=== PATIENT | male | born 2000 ===

== ENCOUNTER 2022-07-14 17:30 | Inpatient (IN) | payer SELFPAY ==
--- NOTE | 2022-07-15 00:22 | Emergency Department Report ---
ED Upper Extremity Inj HPI - General Chief Complaint: Fall Stated Complaint: ARM PAIN Time Seen by Provider: 07/14/22 23:09 Source: patient Mode of arrival: Ambulatory Limitations: No Limitations - History of Present Illness Initial Comments: 22-year-old male who presented with left shoulder pain that started after a fall shortly before presentation. Patient rated the pain as 7-8 over 10 in severity. He has not been able to move the shoulder in any direction due to excruciating pain. No other modifying or associated factors reported. MD Complaint: Injury to:: left, shoulder - Related Data Previous Rx's Medication Instructions Recorded Last Taken Type oxyCODONE /ACETAMINOPHEN [Percocet 1 tab PO Q6HR PRN #20 tablet 07/16/22 Unknown Rx 5/325] Allergies Allergy/AdvReac Type Severity Reaction Status Date / Time No Known Allergies Allergy Verified 07/15/22 00:26 ED Review of Systems ROS: Stated complaint: ARM PAIN Other details as noted in HPI Comment: All other systems reviewed and negative Musculoskeletal: arthralgia, other (left shoulder pain and injury ) ED Past Medical Hx - Medications Home Medications: Home Medications Medication Instructions Recorded Confirmed Last Taken Type oxyCODONE /ACETAMINOPHEN [Percocet 1 tab PO Q6HR PRN #20 tablet 07/16/22 Unknown Rx 5/325] ED Physical Exam - General Limitations: No Limitations General appearance: alert, in no apparent distress - Head Head exam: Present: normal inspection - ENT ENT exam: Present: normal exam, normal orophraynx, mucous membranes moist - Neck Neck exam: Present: normal inspection, full ROM. Absent: tenderness - Respiratory Respiratory exam: Present: normal lung sounds bilaterally. Absent: respiratory distress, accessory muscle use - Cardiovascular Cardiovascular Exam: Present: regular rate, normal rhythm, normal heart sounds - GI/Abdominal GI/Abdominal exam: Present: soft, normal bowel sounds. Absent: distended, tenderness - Extremities Exam Extremities exam: Present: tenderness (left shoulder with obvious deformity but no swellings ), normal capillary refill. Absent: pedal edema - Back Exam Back exam: Absent: tenderness - Neurological Exam Neurological exam: Present: alert, oriented X3 - Psychiatric Psychiatric exam: Present: normal affect, normal mood - Skin Skin exam: Present: warm, normal color ED Course Vital Signs 07/14/22 07/15/22 07/15/22 17:36 00:40 01:40 Temperature 99.1 F Pulse Rate 105 H Respiratory 18 18 Rate Blood Pressure 155/97 [Left] O2 Sat by Pulse 100 100 Oximetry 07/15/22 02:10 Temperature Pulse Rate 100 H Respiratory 20 Rate Blood Pressure [Left] O2 Sat by Pulse Oximetry - Orthopedic Joint Reduction Joint #1 Consent Obtained: written consent Time Out Performed: Yes Side: left Joint Reduction Location: shoulder Analgesia: moderate sedation Shoulder Technique Used (if applicable): traction/counter-traction Technique Used: traction/counter-traction, direct manipulation Post-Reduction Neuro Exam: intact, no change Post-Reduction Vascular Exam: intact Post Reduction X-Ray Obtained: Yes (failed reduction) Post Reduction X-Ray Results: not reduced Splint Applied: No Patient Tolerated Procedure: well Additional Comments: after failed 3rd attempt i call Dr Hayes the Orthopedic oncall who suggested ad mitting the patient to the hospitalist and he plan to take him to the OR. ED Medical Decision Making - Lab Data Result diagrams: 07/16/22 05:06 07/16/22 05:06 - Medical Decision Making here with left shoulder pain after a fall with noted tenderness and obvious deformity -- this is dislocation with or without fracture -- will go ahead and give pain medication and get xray for further evaluation and treatment-- Xray noted with no fracture but dislocation--with failed 3 rd attempt-- Dr Hayse consulted who plan to take patient to the OR. Critical care attestation.: If time is entered above; I have spent that time in minutes in the direct care of this critically ill patient, excluding procedure time. ED Disposition Clinical Impression: Dislocation of left shoulder joint Qualifiers: Encounter type: initial encounter Qualified Code(s): S43.005A - Unspecified dislocation of left shoulder joint, initial encounter Fall Qualifiers: Encounter type: initial encounter Qualified Code(s): W19.XXXA - Unspecified fall, initial encounter Disposition: ADMITTED INPATIENT Is pt being admited?: No Does the pt Need Aspirin: No Condition: Stable
[2022-07-15] MEDS ORDERED: fentaNYL 100 MCG/2 ML INJ IV ONE ×2 (00:23→04:15)
[2022-07-15] MEDS ORDERED: HYDROcodone/ACETAMINOPHEN 5-325 MG TAB PO ONE (00:36)
[2022-07-15] MEDS ORDERED: MIDAZOLAM 2 MG/2 ML INJ ONE ×2 (00:36→01:20)
[2022-07-15] MEDS ORDERED: SODIUM CHLORIDE 0.9% 1000 ML 1,000 ML ONE (00:37)
--- NOTE | 2022-07-15 00:46 | XRay Report ---
LEFT SHOULDER 3 VIEWS 2339 INDICATION: shoulder pain - fall COMPARISON: None available. FINDINGS: Humeral head is dislocated inferiorly and anteriorly in relation to the glenoid. No obvious fracture is identified. Signer Name: Neil Gonzalez MD Signed: 07/15/2022 12:42 AM Workstation Name: [id number]
[2022-07-15] MEDS ORDERED: MIDAZOLAM 5 MG/5 ML INJ MDV IV NR (01:00)
[2022-07-15] MEDS ORDERED: propofoL 200 MG/20 ML VIAL IV ONE ×4 (01:03→12:52)
[2022-07-15] MEDS ORDERED: KETAMINE 500 MG/5 ML VIAL MDV ONE (02:08)
[2022-07-15] MEDS ORDERED: MORPHINE 2 MG/1 ML INJ IV PRN ×2 (02:33→04:32)
[2022-07-15] MEDS ORDERED: ACETAMINOPHEN 325 MG TAB PO PRN ×2 (02:33→04:32)
[2022-07-15] MEDS ORDERED: ONDANSETRON 4 MG/2 ML INJ IV PRN ×2 (02:33→04:32)
[2022-07-15 02:51] LABS: Basophils % (Auto) 0.3 % (0.0-1.8); Eosinophils # (Auto) 0.2 K/mm3 (0.0-0.4); Eosinophils % (Auto) 1.6 % (0.0-4.3); Hematocrit 47.3 % (35.5-45.6); Hemoglobin 16.3 gm/dl (11.8-15.2); Lymphocytes # (Auto) 1.8 K/mm3 (1.2-5.4); Mean Corpuscular HGB Conc 35 % (32-34); Mean Corpuscular Volume 87 fl (84-94); Monocytes # (Auto) 0.9 K/mm3 (0.0-0.8); Monocytes % (Auto) 7.1 % (0.0-7.3); Platelet Count 180 K/mm3 (140-440); Red Blood Count 5.47 M/mm3 (3.65-5.03); Red Cell Distribution Width 13.5 % (13.2-15.2)
--- NOTE | 2022-07-15 02:55 | XRay Report ---
LEFT SHOULDER 1 VIEW 0202 INDICATION: POST REDUCTION LEFT SHOULDER COMPARISON: 07/14/2022 2339 FINDINGS: Single AP view shows continued anteroinferior dislocation of the humeral head and Signer Name: Neil Gonzalez MD Signed: 07/15/2022 2:51 AM Workstation Name: [id number]
[2022-07-15 03:02] LABS: INR 0.83 (0.87-1.13); Partial Thromboplastin Time 29.2 Sec. (24.2-36.6)
[2022-07-15 03:22] LABS: Alanine Aminotransferase 40 units/L (7-56); Albumin 4.8 g/dL (3.9-5); BUN/Creatinine Ratio 9; Blood Urea Nitrogen 8 mg/dL (9-20); Calcium 9.4 mg/dL (8.4-10.2); Hemolysis Index 67
[2022-07-15] MEDS ORDERED: MIDAZOLAM 2 MG/2 ML INJ IV ONE (04:16)
[2022-07-15] MEDS ORDERED: MORPHINE 4 MG/1 ML INJ IV PRN (04:32)
[2022-07-15] MEDS ORDERED: ALBUTEROL 2.5 MG/3 ML NEBU IH PRN (04:32)
--- NOTE | 2022-07-15 04:38 | History and Physical Report ---
History of Present Illness Date of examination: 07/15/22 Date of admission: 07/15/22 02:33 Chief complaint: Fall Left arm pain History of present illness: 22-year-old male who presented with left shoulder pain that started after a fall shortly before presentation. Patient rated the pain as 7-8 over 10 in severity. He has not been able to move the shoulder in any direction due to excruciating pain. No other modifying or associated factors reported. In the emergency room X -ray noted with no fracture but dislocation--with failed 3 rd attempt-- Dr Hayes consulted who plan to take patient to the OR. Medications and Allergies Allergies Allergy/AdvReac Type Severity Reaction Status Date / Time No Known Allergies Allergy Verified 07/15/22 00:26 Active Meds: Active Medications Acetaminophen (Acetaminophen 325 Mg Tab) 650 mg PO Q4H PRN PRN Reason: Pain MILD(1-3)/Fever >100.5/YEH Morphine Sulfate (Morphine 2 Mg/1 Ml Inj) 2 mg IV Q4H PRN PRN Reason: Pain, Moderate (4-6) Ondansetron HCl (Ondansetron 4 Mg/2 Ml Inj) 4 mg IV Q8H PRN PRN Reason: Nausea And Vomiting Sodium Chloride (Sodium Chloride 0.9% 10 Ml Flush Syringe) 10 ml IV BID JONATHAN Sodium Chloride (Sodium Chloride 0.9% 10 Ml Flush Syringe) 10 ml IV PRN PRN PRN Reason: LINE FLUSH Review of Systems All systems: negative Constitutional: other (Left arm pain) Exam - Constitutional Vitals: Temp Pulse Resp BP Pulse Ox 99.1 F 100 H 20 155/97 100 07/14/22 17:36 07/15/22 02:10 07/15/22 02:10 07/14/22 17:36 07/15/22 01:40 General appearance: Present: no acute distress, well-nourished - EENT Eyes: Present: PERRL ENT: hearing intact, clear oral mucosa - Neck Neck: Present: supple, normal ROM - Respiratory Respiratory effort: normal Respiratory: bilateral: CTA - Cardiovascular Heart Sounds: Present: S1 & S2. Absent: rub, click - Extremities Extremities: pulses symmetrical, No edema Peripheral Pulses: within normal limits - Abdominal General gastrointestinal: Present: soft, non-tender, non-distended, normal bowel sounds Male genitourinary: Present: normal - Integumentary Integumentary: Present: clear, warm, dry - Musculoskeletal Musculoskeletal: gait normal, strength equal bilaterally - Psychiatric Psychiatric: appropriate mood/affect, intact judgment & insight - Neurologic Neurologic: CNII-XII intact, moves all extremities Results - Labs CBC & Chem 7: 07/15/22 02:36 07/15/22 02:36 Labs: Laboratory Last Values WBC 12.1 K/mm3 (4.5-11.0) H 07/15/22 02:36 RBC 5.47 M/mm3 (3.65-5.03) H 07/15/22 02:36 Hgb 16.3 gm/dl (11.8-15.2) H 07/15/22 02:36 Hct 47.3 % (35.5-45.6) H 07/15/22 02:36 MCV 87 fl (84-94) 07/15/22 02:36 MCH 30 pg (28-32) 07/15/22 02:36 MCHC 35 % (32-34) H 07/15/22 02:36 RDW 13.5 % (13.2-15.2) 07/15/22 02:36 Plt Count 180 K/mm3 (140-440) 07/15/22 02:36 Lymph % (Auto) 15.0 % (13.4-35.0) 07/15/22 02:36 [place] % (Auto) 7.1 % (0.0-7.3) 07/15/22 02:36 Eos % (Auto) 1.6 % (0.0-4.3) 07/15/22 02:36 Baso % (Auto) 0.3 % (0.0-1.8) 07/15/22 02:36 Lymph # (Auto) 1.8 K/mm3 (1.2-5.4) 07/15/22 02:36 [place] # (Auto) 0.9 K/mm3 (0.0-0.8) H 07/15/22 02:36 Eos # (Auto) 0.2 K/mm3 (0.0-0.4) 07/15/22 02:36 Baso # (Auto) 0.0 K/mm3 (0.0-0.1) 07/15/22 02:36 Seg Neutrophils % 76.0 % (40.0-70.0) H 07/15/22 02:36 Seg Neutrophils # 9.2 K/mm3 (1.8-7.7) H 07/15/22 02:36 PT 12.3 Sec. (12.2-14.9) 07/15/22 02:36 INR 0.83 (0.87-1.13) L 07/15/22 02:36 APTT 29.2 Sec. (24.2-36.6) 07/15/22 02:36 Sodium 138 mmol/L (137-145) 07/15/22 02:36 Potassium 4.7 mmol/L (3.6-5.0) 07/15/22 02:36 Chloride 101.0 mmol/L (98-107) 07/15/22 02:36 Carbon Dioxide 27 mmol/L (22-30) 07/15/22 02:36 Anion Gap 15 mmol/L 07/15/22 02:36 BUN 8 mg/dL (9-20) L 07/15/22 02:36 Creatinine 0.9 mg/dL (0.8-1.3) 07/15/22 02:36 Estimated GFR > 60 ml/min 07/15/22 02:36 BUN/Creatinine Ratio 9 % 07/15/22 02:36 Glucose 118 mg/dL (75-100) H 07/15/22 02:36 Calcium 9.4 mg/dL (8.4-10.2) 07/15/22 02:36 Total Bilirubin 0.70 mg/dL (0.1-1.2) 07/15/22 02:36 AST 37 units/L (5-40) 07/15/22 02:36 ALT 40 units/L (7-56) 07/15/22 02:36 Alkaline Phosphatase 136 units/L (35-129) H 07/15/22 02:36 Total Protein 7.6 g/dL (6.3-8.2) 07/15/22 02:36 Albumin 4.8 g/dL (3.9-5) 07/15/22 02:36 Albumin/Globulin Ratio 1.7 % 07/15/22 02:36 - Imaging and Cardiology Chest x-ray: report reviewed [place]/IV: Voiding Method Urinal Assessment and Plan VTE prophylaxis?: Mechanical Plan of care discussed with patient/family: Yes - Patient Problems (1) Dislocation of left shoulder joint Current Visit: Yes Status: Acute Qualifiers: Encounter type: initial encounter Qualified Code(s): S43.005A - Unspecified dislocation of left shoulder joint, initial encounter Plan to address problem: Admit the patient to the [facility]. NPO. D5 half-normal saline at the rate of 100 cc/h. We consulted orthopedic Dr. Hayes who will take the patient to the OR for reduction. Continue current management (2) Fall Current Visit: Yes Status: Acute Qualifiers: Encounter type: initial encounter Qualified Code(s): W19.XXXA - Unspecified fall, initial encounter Plan to address problem: Patient is on fall precaution. We will monitor the patient closely. Will consult with Dr. Hayes for left shoulder reduction (3) DVT prophylaxis Current Visit: Yes Status: Acute Plan to address problem: SCD for DVT prophylaxis. Pepcid 20 mg IV every 12 hours for GI prophylaxis. Patient is a full code
[2022-07-15] MEDS ORDERED: D5W/0.45% NACL 1,000 ML IV SCH (05:00)
[2022-07-15] MEDS: FAMOTIDINE 20 MG/2 ML INJ IV SCH ×2 (09:05→22:33)
[2022-07-15] MEDS: IPRATROPIUM/ALBUTEROL SULFATE 3 ML AMPUL.NEB IH SCH ×3 (09:33→21:00)
--- NOTE | 2022-07-15 11:02 | Anesthesia Day of Surgery ---
Anesthesia Day of Surgery - Day of Surgery Patient Examined: Yes Patient H&P Reviewed: Yes Patient is NPO: Yes
--- NOTE | 2022-07-15 11:02 | Anesthesia Consultation ---
Anesthesia Consult and Med Hx Date of service: 07/15/22 - Airway Anesthetic Teeth Evaluation: Good ROM Head & Neck: Adequate Mental/Hyoid Distance: Adequate Mallampati Class: Class I Intubation Access Assessment: Good - Pulmonary Exam CTA: Yes - Cardiac Exam Cardiac Exam: RRR - Pre-Operative Health Status ASA Pre-Surgery Classification: ASA2 Proposed Anesthetic Plan: General - Pulmonary Hx Smoking: Yes (1 ppd) Hx Asthma: No Hx Respiratory Symptoms: No - Cardiovascular System Hx Hypertension: No Hx Coronary Artery Disease: No - Central Nervous System Hx Seizures: No CVA: No - Gastrointestinal Hx Gastroesophageal Reflux Disease: No - Endocrine Hx Renal Disease: No Hx Liver Disease: No Hx Insulin Dependent Diabetes: No Hx Thyroid Disease: No - Hematic Hx Anemia: No Hx Sickle Cell Disease: No - Other Systems Hx Alcohol Use: No Hx Substance Use: No Hx Cancer: No Hx Obesity: No - Additional Comments Anesthesia Medical History Comments: no hx of anesthetic complications
[2022-07-15] MEDS ORDERED: LIDOCAINE MPF (2%) 20 MG/1 ML VIAL 5 ML ONE (12:52)
--- NOTE | 2022-07-15 13:45 | Consultation ---
History of Present Illness - [facility] Consult date: 07/15/22 Consult reason: joint pain History of present illness: 22 y/o male with c/o left shoulder pain after fall earlier today, seen in the ED where patient noted to enebriated with smell of alcohol, multiple attempts un successful therefore admitted for closed reduction in the OR. no other c/o's noted, denies motor/sensory loss distally.... Medications and Allergies Allergies Allergy/AdvReac Type Severity Reaction Status Date / Time No Known Allergies Allergy Verified 07/15/22 00:26 Active Meds: Active Medications Acetaminophen (Acetaminophen 325 Mg Tab) 650 mg PO Q4H PRN PRN Reason: Pain MILD(1-3)/Fever >100.5/YEH Albuterol (Albuterol 2.5 Mg/3 Ml Nebu) 2.5 mg IH Q4HRT PRN PRN Reason: Shortness Of Breath Albuterol/Ipratropium (Ipratropium/Albuterol Sulfate 3 Ml Ampul.Neb) 1 ampul IH Q6HRT [facility] Last Admin: 07/15/22 09:33 Dose: Not Given Famotidine (Famotidine 20 Mg/2 Ml Inj) 20 mg IV BID [facility] Last Admin: 07/15/22 09:05 Dose: 20 mg Dextrose/Sodium Chloride (D5/0.45ns) 1,000 mls @ 100 mls/hr IV DIRECT [facility] Morphine Sulfate (Morphine 2 Mg/1 Ml Inj) 2 mg IV Q4H PRN PRN Reason: Pain, Moderate (4-6) Morphine Sulfate (Morphine 4 Mg/1 Ml Inj) 4 mg IV Q4H PRN PRN Reason: Pain , Severe (7-10) Ondansetron HCl (Ondansetron 4 Mg/2 Ml Inj) 4 mg IV Q8H PRN PRN Reason: Nausea And Vomiting Sodium Chloride (Sodium Chloride 0.9% 10 Ml Flush Syringe) 10 ml IV BID [facility] Last Admin: 07/15/22 09:05 Dose: 10 ml Sodium Chloride (Sodium Chloride 0.9% 10 Ml Flush Syringe) 10 ml IV PRN PRN PRN Reason: LINE FLUSH Physical Examination - Physical exam Narrative exam: left shoulder - tender at GH joint, dec AROM, + sulcus sign Eyes: PERRL ENT: Positive: clear oral mucosa Respiratory effort: normal Respiratory: bilateral: CTA Rhythm: regular Heart Sounds: Positive: S1 & S2 General gastrointestinal: Positive: soft, non-tender, non-distended, normal bowel sounds Integumentary: clear, warm, dry Neurologic: Positive: CNII-XII intact, moves all extremities, gait normal. Negative: focal deficits Assessment and Plan Anterior shoulder dislocation will take to OR for CR left shoulder...
--- NOTE | 2022-07-15 13:48 | Procedure Note ---
Date of procedure: 07/15/22 Pre-op diagnosis: Left shoulder dislocation Post-op diagnosis: same Procedure: Closed reduction left shoulder dislocation Procedure Patient was brought to the OR placed on the OR table in supine position following induction with MAC anesthesia 2 sheaths were placed 1 underneath the left axilla this was then given to scrub nurse the second sheet was applied to the patient's forearm and tied around my midsection with gentle traction the shoulder was noted to reduce spontaneously with a palpable clunk noted postreduction x-rays via C arm were obtained showing good anatomic reduction with no obvious fracture seen patient was placed in a arm sling and was taken to postanesthesia recovery in stable condition Anesthesia: MAC Surgeon: BLACK KRISHNAMURTHY Estimated blood loss: none Pathology: none Condition: stable Disposition: PACU
--- NOTE | 2022-07-15 15:06 | XRay Report ---
XR shoulder 1V LT Technique: Intraoperative fluoroscopic guidance was provided. Fluoroscopy time: 2 seconds. Fluoroscopy images: 1. Findings/Impression: Intraoperative fluoroscopic guidance for left glenohumeral joint reduction. Roro samuel see procedure report for further details. Signer Name: Luis Iglesias MD Signed: 07/15/2022 3:02 PM Workstation Name: [email or web address]
--- NOTE | 2022-07-15 16:12 | Post Anesthesia Evaluation ---
- Post Anesthesia Evaluation Patient Participated: Yes Airway Patent: Yes Stable Respiratory Function: Yes Nausea/Vomiting: No Temp > 96.8F: Yes Pain Manageable: Yes Adequeate Hydration: Yes Anesthesia Complications: No Block Receding Appropriately: Not Applicable Patient on Ventilator: No
--- NOTE | 2022-07-15 20:16 | Progress Note ---
Assessment and Plan Assessment and plan: --Dislocation of left shoulder joint Orthopedic Dr. Hayes evaluated the patient, patient n.p.o. status Left shoulder joint dislocation: s/p Closed reduction left shoulder dislocation 07/15/2022 Postop care, IV fluids, pain medications. PT OT and supportive care ---h/o Fall Fall precaution. Supportive care --DVT prophylaxis SCD for DVT prophylaxis. Pepcid 20 mg IV every 12 hours for GI prophylaxis. Closely monitor the patient and adjust management as needed Plan of care reviewed with the patient and his nurse Orthopedic evaluation, therapeutic intervention and management reviewed And appreciated Continue supportive care History Interval history: I have seen and examined the patient at the bedside Patient's chart and medications reviewed Patient underwent Closed reduction left shoulder dislocation today [07/15/2022] Patient tolerated the procedure well, returned to the room Complains of some pain in the shoulder Hospitalist Physical - Constitutional Vitals: Temp Pulse Resp BP Pulse Ox 99.5 F 100 H 18 132/88 98 07/15/22 14:30 07/15/22 14:30 07/15/22 15:07 07/15/22 15:07 07/15/22 14:30 General appearance: Present: mild distress, well-nourished, other (Due to some pain) - EENT Eyes: Present: PERRL, EOM intact ENT: hearing intact, clear oral mucosa - Neck Neck: Present: supple, normal ROM - Respiratory Respiratory effort: normal Respiratory: bilateral: diminished, negative: rales, rhonchi, wheezing - Cardiovascular Rhythm: regular Heart Sounds: Present: S1 & S2 - Extremities Extremities: abnormal (Mild shoulder pain) - Abdominal General gastrointestinal: soft, non-tender, non-distended, normal bowel sounds - Integumentary Integumentary: Present: clear, warm - Psychiatric Psychiatric: appropriate mood/affect, cooperative - Neurologic Neurologic: CNII-XII intact, moves all extremities Results - Labs CBC & Chem 7: 07/15/22 02:36 07/15/22 02:36 Labs: Laboratory Last Values WBC 12.1 K/mm3 (4.5-11.0) H 07/15/22 02:36 RBC 5.47 M/mm3 (3.65-5.03) H 07/15/22 02:36 Hgb 16.3 gm/dl (11.8-15.2) H 07/15/22 02:36 Hct 47.3 % (35.5-45.6) H 07/15/22 02:36 MCV 87 fl (84-94) 07/15/22 02:36 MCH 30 pg (28-32) 07/15/22 02:36 MCHC 35 % (32-34) H 07/15/22 02:36 RDW 13.5 % (13.2-15.2) 07/15/22 02:36 Plt Count 180 K/mm3 (140-440) 07/15/22 02:36 Lymph % (Auto) 15.0 % (13.4-35.0) 07/15/22 02:36 [place] % (Auto) 7.1 % (0.0-7.3) 07/15/22 02:36 Eos % (Auto) 1.6 % (0.0-4.3) 07/15/22 02:36 Baso % (Auto) 0.3 % (0.0-1.8) 07/15/22 02:36 Lymph # (Auto) 1.8 K/mm3 (1.2-5.4) 07/15/22 02:36 [place] # (Auto) 0.9 K/mm3 (0.0-0.8) H 07/15/22 02:36 Eos # (Auto) 0.2 K/mm3 (0.0-0.4) 07/15/22 02:36 Baso # (Auto) 0.0 K/mm3 (0.0-0.1) 07/15/22 02:36 Seg Neutrophils % 76.0 % (40.0-70.0) H 07/15/22 02:36 Seg Neutrophils # 9.2 K/mm3 (1.8-7.7) H 07/15/22 02:36 PT 12.3 Sec. (12.2-14.9) 07/15/22 02:36 INR 0.83 (0.87-1.13) L 07/15/22 02:36 APTT 29.2 Sec. (24.2-36.6) 07/15/22 02:36 Sodium 138 mmol/L (137-145) 07/15/22 02:36 Potassium 4.7 mmol/L (3.6-5.0) 07/15/22 02:36 Chloride 101.0 mmol/L (98-107) 07/15/22 02:36 Carbon Dioxide 27 mmol/L (22-30) 07/15/22 02:36 Anion Gap 15 mmol/L 07/15/22 02:36 BUN 8 mg/dL (9-20) L 07/15/22 02:36 Creatinine 0.9 mg/dL (0.8-1.3) 07/15/22 02:36 Estimated GFR > 60 ml/min 07/15/22 02:36 BUN/Creatinine Ratio 9 % 07/15/22 02:36 Glucose 118 mg/dL (75-100) H 07/15/22 02:36 Calcium 9.4 mg/dL (8.4-10.2) 07/15/22 02:36 Total Bilirubin 0.70 mg/dL (0.1-1.2) 07/15/22 02:36 AST 37 units/L (5-40) 07/15/22 02:36 ALT 40 units/L (7-56) 07/15/22 02:36 Alkaline Phosphatase 136 units/L (35-129) H 07/15/22 02:36 Total Protein 7.6 g/dL (6.3-8.2) 07/15/22 02:36 Albumin 4.8 g/dL (3.9-5) 07/15/22 02:36 Albumin/Globulin Ratio 1.7 % 07/15/22 02:36 [place]/IV: Voiding Method Urinal Active Medications - Current Medications Current Medications: Generic Name Dose Route Start Last Admin Trade Name Freq PRN Reason Stop Dose Admin Acetaminophen 650 mg 07/15/22 02:33 Acetaminophen 325 Mg Tab PO Q4H PRN Pain MILD(1-3)/Fever >100.5/YEH Albuterol 2.5 mg 07/15/22 04:32 Albuterol 2.5 Mg/3 Ml Nebu IH Q4HRT PRN Shortness Of Breath Albuterol/Ipratropium 1 ampul 07/15/22 08:00 07/15/22 13:43 Ipratropium/Albuterol Sulfate 3 Ml Ampul.Neb IH Not Given Q6HRT JONATHAN Famotidine 20 mg 07/15/22 10:00 07/15/22 09:05 Famotidine 20 Mg/2 Ml Inj IV 20 mg BID JONATHAN Administration Dextrose/Sodium Chloride 1,000 mls @ 100 mls/hr 07/15/22 05:00 D5/0.45ns IV DIRECT JONATHAN Morphine Sulfate 2 mg 07/15/22 02:33 Morphine 2 Mg/1 Ml Inj IV Q4H PRN Pain, Moderate (4-6) Morphine Sulfate 4 mg 07/15/22 04:32 Morphine 4 Mg/1 Ml Inj IV Q4H PRN Pain , Severe (7-10) Ondansetron HCl 4 mg 07/15/22 02:33 Ondansetron 4 Mg/2 Ml Inj IV Q8H PRN Nausea And Vomiting Sodium Chloride 10 ml 07/15/22 03:00 07/15/22 15:11 Sodium Chloride 0.9% 10 Ml Flush Syringe IV 10 ml BID JONATHAN Administration Sodium Chloride 10 ml 07/15/22 02:33 Sodium Chloride 0.9% 10 Ml Flush Syringe IV PRN PRN LINE FLUSH
[2022-07-16 05:25] LABS: Basophils % (Auto) 0.2 % (0.0-1.8); Eosinophils # (Auto) 0.2 K/mm3 (0.0-0.4); Eosinophils % (Auto) 2.5 % (0.0-4.3); Hemoglobin 16.4 gm/dl (11.8-15.2); Lymphocytes # (Auto) 2.3 K/mm3 (1.2-5.4); Lymphocytes % (Auto) 24.9 % (13.4-35.0); Mean Corpuscular HGB Conc 34 % (32-34); Mean Corpuscular Volume 87 fl (84-94); Monocytes # (Auto) 0.7 K/mm3 (0.0-0.8); Monocytes % (Auto) 7.8 % (0.0-7.3); Platelet Count 150 K/mm3 (140-440); Red Blood Count 5.51 M/mm3 (3.65-5.03); Red Cell Distribution Width 13.4 % (13.2-15.2)
[2022-07-16 05:37] LABS: BUN/Creatinine Ratio 11; Blood Urea Nitrogen 9 mg/dL (9-20); Calcium 9.6 mg/dL (8.4-10.2); Hemolysis Index 19
--- NOTE | 2022-07-16 09:41 | Progress Note ---
Assessment and Plan Assessment and plan: --Dislocation of left shoulder joint Orthopedic Dr. Hayes evaluated the patient, patient n.p.o. status Left shoulder joint dislocation: s/p Closed reduction left shoulder dislocation 07/15/2022 Postop care, IV fluids, pain medications. PT OT and supportive care ---h/o Fall Fall precaution. Supportive care --DVT prophylaxis SCD for DVT prophylaxis. Pepcid 20 mg IV every 12 hours for GI prophylaxis. Closely monitor the patient and adjust management as needed Plan of care reviewed with the patient and his nurse Orthopedic evaluation, therapeutic intervention and management reviewed And appreciated Continue supportive care Hospitalist Physical - Constitutional Vitals: Temp Pulse Resp BP Pulse Ox 97.8 F 103 H 17 137/92 97 07/16/22 07:21 07/16/22 07:21 07/16/22 07:21 07/16/22 07:21 07/16/22 07:21 General appearance: Present: mild distress, well-nourished, other (Due to some pain) Results - Labs CBC & Chem 7: 07/16/22 05:06 07/16/22 05:06 Labs: Laboratory Last Values WBC 9.1 K/mm3 (4.5-11.0) 07/16/22 05:06 RBC 5.51 M/mm3 (3.65-5.03) H 07/16/22 05:06 Hgb 16.4 gm/dl (11.8-15.2) H 07/16/22 05:06 Hct 48.0 % (35.5-45.6) H 07/16/22 05:06 MCV 87 fl (84-94) 07/16/22 05:06 MCH 30 pg (28-32) 07/16/22 05:06 MCHC 34 % (32-34) 07/16/22 05:06 RDW 13.4 % (13.2-15.2) 07/16/22 05:06 Plt Count 150 K/mm3 (140-440) 07/16/22 05:06 Lymph % (Auto) 24.9 % (13.4-35.0) 07/16/22 05:06 [place] % (Auto) 7.8 % (0.0-7.3) H 07/16/22 05:06 Eos % (Auto) 2.5 % (0.0-4.3) 07/16/22 05:06 Baso % (Auto) 0.2 % (0.0-1.8) 07/16/22 05:06 Lymph # (Auto) 2.3 K/mm3 (1.2-5.4) 07/16/22 05:06 [place] # (Auto) 0.7 K/mm3 (0.0-0.8) 07/16/22 05:06 Eos # (Auto) 0.2 K/mm3 (0.0-0.4) 07/16/22 05:06 Baso # (Auto) 0.0 K/mm3 (0.0-0.1) 07/16/22 05:06 Seg Neutrophils % 64.6 % (40.0-70.0) 07/16/22 05:06 Seg Neutrophils # 5.9 K/mm3 (1.8-7.7) 07/16/22 05:06 PT 12.3 Sec. (12.2-14.9) 07/15/22 02:36 INR 0.83 (0.87-1.13) L 07/15/22 02:36 APTT 29.2 Sec. (24.2-36.6) 07/15/22 02:36 Sodium 136 mmol/L (137-145) L 07/16/22 05:06 Potassium 4.1 mmol/L (3.6-5.0) 07/16/22 05:06 Chloride 98.8 mmol/L (98-107) 07/16/22 05:06 Carbon Dioxide 26 mmol/L (22-30) 07/16/22 05:06 Anion Gap 15 mmol/L 07/16/22 05:06 BUN 9 mg/dL (9-20) 07/16/22 05:06 Creatinine 0.8 mg/dL (0.8-1.3) 07/16/22 05:06 Estimated GFR > 60 ml/min 07/16/22 05:06 BUN/Creatinine Ratio 11 % 07/16/22 05:06 Glucose 103 mg/dL (75-100) H 07/16/22 05:06 Calcium 9.6 mg/dL (8.4-10.2) 07/16/22 05:06 Total Bilirubin 0.70 mg/dL (0.1-1.2) 07/15/22 02:36 AST 37 units/L (5-40) 07/15/22 02:36 ALT 40 units/L (7-56) 07/15/22 02:36 Alkaline Phosphatase 136 units/L (35-129) H 07/15/22 02:36 Total Protein 7.6 g/dL (6.3-8.2) 07/15/22 02:36 Albumin 4.8 g/dL (3.9-5) 07/15/22 02:36 Albumin/Globulin Ratio 1.7 % 07/15/22 02:36 [place]/IV: Voiding Method Urinal Active Medications - Current Medications Current Medications: Generic Name Dose Route Start Last Admin Trade Name Freq PRN Reason Stop Dose Admin Acetaminophen 650 mg 07/15/22 02:33 Acetaminophen 325 Mg Tab PO Q4H PRN Pain MILD(1-3)/Fever >100.5/YEH Albuterol 2.5 mg 07/15/22 04:32 Albuterol 2.5 Mg/3 Ml Nebu IH Q4HRT PRN Shortness Of Breath Famotidine 20 mg 07/15/22 10:00 07/15/22 22:33 Famotidine 20 Mg/2 Ml Inj IV 20 mg BID JONATHAN Administration Dextrose/Sodium Chloride 1,000 mls @ 100 mls/hr 07/15/22 05:00 D5/0.45ns IV DIRECT JONATHAN Morphine Sulfate 2 mg 07/15/22 02:33 Morphine 2 Mg/1 Ml Inj IV Q4H PRN Pain, Moderate (4-6) Morphine Sulfate 4 mg 07/15/22 04:32 Morphine 4 Mg/1 Ml Inj IV Q4H PRN Pain , Severe (7-10) Ondansetron HCl 4 mg 07/15/22 02:33 Ondansetron 4 Mg/2 Ml Inj IV Q8H PRN Nausea And Vomiting Sodium Chloride 10 ml 07/15/22 03:00 07/15/22 22:33 Sodium Chloride 0.9% 10 Ml Flush Syringe IV 10 ml BID JONATHAN Administration Sodium Chloride 10 ml 07/15/22 02:33 Sodium Chloride 0.9% 10 Ml Flush Syringe IV PRN PRN LINE FLUSH
[2022-07-16] MEDS: FAMOTIDINE 20 MG/2 ML INJ IV SCH (10:43)
[2022-07-16 11:57] VITALS: BP 132/85
--- NOTE | 2022-07-16 14:19 | Discharge Summary ---
Providers - Providers Date of Admission: 07/15/22 02:33 Date of discharge: 07/16/22 Attending physician: ALLISON OATES 07/15/22 04:32 Consult to Physician [CONS] Routine Comment: Consulting Provider: BLACK HAYES Physician Instructions: Reason For Exam: Dislocation of the left shoulder joint Primary care physician: [employer] Hospitalization Condition: Stable Disposition: 01 HOME / SELF CARE / HOMELESS Exam - Constitutional Vitals: Temp Pulse Resp BP Pulse Ox 98.1 F 112 H 18 132/85 95 07/16/22 11:24 07/16/22 11:24 07/16/22 11:24 07/16/22 11:24 07/16/22 11:24 Plan Additional Instructions: Advised to see orthopedic surgeon Dr. Hayes in 2 weeks. If you have worsening symptoms contact MD or go to the nearest emergency room as needed. Advised to see primary care physician in 5 to 7 days Follow up with: MICHELLE WHATLEY MD [Primary Care Provider] - 3-5 Days BLACK HAYES MD [Staff Physician] - 14 Days Prescriptions: oxyCODONE /ACETAMINOPHEN [Percocet 5/325] 1 tab PO Q6HR PRN #20 tablet PRN Reason: Pain
== END 2022-07-16 16:25 | disposition home or self-care (01) | DRG 563 ==
LOC: ED 17:30 → 4A 07-15 02:33
PROVIDERS: ADMIT Hospitalist; ATTEND Internal Medicine
PROC: 0RSK3ZZ Reposition Left Shoulder Joint, Percutaneous Approach (ICD-10-PCS; principal; 2022-07-15)
PROC: 0RSKXZZ Reposition Left Shoulder Joint, External Approach (ICD-10-PCS; 2022-07-15)
DX: S43.005A Unspecified dislocation of left shoulder joint, initial encounter (principal); W18.39XA Other fall on same level, initial encounter; Y93.89 Activity, other specified; Y92.89 Other specified places as the place of occurrence of the external cause; Y99.8 Other external cause status
CPT/HCPCS: 36415; 80048; 80053; 85025; 85610; 85730; 94640; 99406; G0378; J3490; J2250; J2704; J3010; J7030